=== PATIENT | male | born 1975 | race Caucasian/White ===

== ENCOUNTER 2018-01-17 16:47 | Emergency (ER) | payer OTHER ==
[2018-01-17 17:58] LABS: PLATELET COUNT 271 10^3/uL (150-400)
[2018-01-17] MEDS ORDERED: TDAP ADULT 0.5 ML INJ (BOOSTRIX) IM ONE (19:41)
--- NOTE | 2018-01-17 19:46 | EDPHY ---
H & P Time Seen by Provider: 01/17/18 17:08 HPI/ROS: CHIEF COMPLAINT: Cutaneous abscess HISTORY OF PRESENT ILLNESS: 42-year-old male presents to the emergency department with concerns about possible MRSA. The patient was in [facility] 2 weeks ago and developed a rash. Approximately 3 or 4 days ago he noted swelling and increasing pain especially to the lesions on his anterior thighs. He does not have a history of skin infections. No history of cellulitis. He does not abuse IV drugs. He saw his primary care provider who called the infectious disease provider director of first impressions who recommended that he come to the emergency department for evaluation. He has has not noticed any fevers. He is unsure of his last tetanus shot. He denies pain in his groin. Denies abdominal pain. Denies chest pain or difficulty breathing. No back pain. No urinary symptoms. REVIEW OF SYSTEMS: Constitutional: No fever, no chills. Eyes: No double or blurry vision. ENT: No sore throat. Respiratory: No cough, no shortness of breath. Cardiac: No chest pain. Gastrointestinal: No abdominal pain, vomiting or diarrhea. Genitourinary: No dysuria. Musculoskeletal: No neck or back pain. Skin: Skin infection bilateral thighs. No rashes. Neurological: No headache. Past Medical/Surgical History: Negative Social History: Smoking Status: Never smoked Physical Exam: General Appearance: Alert, no distress. Afebrile. Nontoxic appearing. Eyes: Pupils equal and round. Extraocular motions are all intact. ENT: Mouth: Mucous membranes moist. Respiratory: No wheezing, rhonchi, or rales, lungs are clear to auscultation. Cardiovascular: Regular rate and rhythm. Gastrointestinal: Abdomen is soft and nontender, no masses, no rebound or guarding, bowel sounds normal. Neurological: Alert and oriented x 3, cranial nerves II through XII grossly intact Skin: No inguinal lymphadenopathy. Right anterior proximal thigh reveals cutaneous abscess which is draining. Minimal induration. No surrounding redness. Nontender to palpate. Purulent drainage expressed. The left anterior proximal thigh reveals cutaneous abscess with large amount of induration and surrounding redness and cellulitis. He has full range of motion of his lower extremities. No lymphangitis. Musculoskeletal: Nontender to palpate along the cervical, thoracic or lumbar spine. Neck is supple. Extremities: Full range of motion and no peripheral edema. Psychiatric: Patient is oriented X 3, there is no agitation. Constitutional: Initial Vital Signs Temperature (C) 36.9 C 01/17/18 16:51 Heart Rate 85 01/17/18 16:51 Respiratory Rate 16 01/17/18 16:51 Blood Pressure 145/81 H 01/17/18 16:51 O2 Sat (%) 96 01/17/18 16:51 O2 Delivery Mode Room Air Allergies/Adverse Reactions: No Known Allergies Allergy (Unverified 07/12/09 16:32) Home Medications: Medication Instructions Recorded Cephalexin [Keflex] 500 mg PO QID #28 cap 01/17/18 Sulfamethox/Tmp 800/160 mg 1 tab PO BID #14 tab 01/17/18 [Bactrim DS] Medical Decision Making Procedures: Procedure: Abscess drainage. The patient's abscess was located on the left anterior thigh. Risks, benefits, alternatives discussed with the patient and consent obtained. The abscess was incised with a #11 blade and purulent drainage was expressed. No packing applied. The patient tolerated the procedure well. The procedure was performed by myself. ED Course/Re-evaluation: 42-year-old male presents to the emergency department with cutaneous abscess to anterior aspect of both the right and left thigh. The abscess to the right thigh has already ruptured and drained. There is no induration. It is minimally tender. He states few days ago it was firm and tender and red and since rupturing it has improved and is resolving. The abscess to the left anterior thigh was incised and drained. The patient has no evidence of lymphangitis. No palpable inguinal lymphadenopathy. He is afebrile. He is nontoxic appearing. Laboratory studies including CBC and chemistries are normal. The case was discussed with Dr. Graves, secondary supervising physician, who did not directly evaluate the patient but agrees with treatment and plan. I do not think this patient needs admission to the hospital. I do not think IV antibiotics are indicated. This was discussed with the patient who verbalized understanding and agreed. His tetanus shot was updated. He was started on Keflex and Bactrim to cover for possible MRSA as well. Wound culture is pending. The patient was instructed to have close follow-up with his primary care provider. He was encouraged to use warm compresses. He was also encouraged to return to the emergency department sooner if he developed any other change in symptoms or felt worse. Differential Diagnosis: Including but not limited to cellulitis, MRSA, cutaneous abscess, sepsis - Data Points Laboratory Results: Laboratory Results 01/17/18 17:45 18 17:45 18 18 17:45 17:45 WBC 8.56 10^3/uL 10^3/uL (3.80-9.50) RBC 4.69 10^6/uL 10^6/uL (4.40-6.38) Hgb 14.5 g/dL g/dL (13.7-17.5) Hct 42.0 % % (40.0-51.0) MCV 89.6 fL fL (81.5-99.8) MCH 30.9 pg pg (27.9-34.1) MCHC 34.5 g/dL g/dL (32.4-36.7) RDW 12.8 % % (11.5-15.2) Plt Count 271 10^3/uL 10^3/uL (150-400) MPV 8.2 fL L fL (8.7-11.7) Neut % (Auto) 59.1 % % (39.3-74.2) Lymph % (Auto) 21.1 % % (15.0-45.0) [place] % (Auto) 9.8 % % (4.5-13.0) Eos % (Auto) 8.3 % H % (0.6-7.6) Baso % (Auto) 1.2 % % (0.3-1.7) Nucleat RBC Rel Count 0.0 % % (0.0-0.2) Absolute Neuts (auto) 5.06 10^3/uL 10^3/uL (1.70-6.50) Absolute Lymphs (auto) 1.81 10^3/uL 10^3/uL (1.00-3.00) Absolute Monos (auto) 0.84 10^3/uL H 10^3/uL (0.30-0.80) Absolute Eos (auto) 0.71 10^3/uL H 10^3/uL (0.03-0.40) Absolute Basos (auto) 0.10 10^3/uL 10^3/uL (0.02-0.10) Absolute Nucleated RBC 0.00 10^3/uL 10^3/uL (0-0.01) Immature Gran % 0.5 % % (0.0-1.1) Immature Gran # 0.04 10^3/uL 10^3/uL (0.00-0.10) Sodium 139 mEq/L mEq/L (135-145) Potassium 4.3 mEq/L mEq/L (3.5-5.2) Chloride 105 mEq/L mEq/L (97-110) Carbon Dioxide 24 mEq/l mEq/l (22-31) Anion Gap 10 mEq/L mEq/L (8-16) BUN 17 mg/dL mg/dL (7-23) Creatinine 1.0 mg/dL mg/dL (0.7-1.3) Estimated GFR > 60 Glucose 89 mg/dL mg/dL (70-100) Calcium 9.2 mg/dL mg/dL (8.5-10.4) Microbiology Results: MICROBIOLOGY 01/17/18 17:15 Thigh - Swab Gram Stain - Final Medications Given: Discontinued Medications Cephalexin (Keflex 500 Mg Prepack#4) 1 btl TAKEHOME EDNOW ONE PRN Reason: Protocol Stop: 01/17/18 19:48 Last Admin: 01/17/18 20:03 Dose: 1 btl Diphtheria/Tetanus/Acell Pertussis (Boostrix) 0.5 ml IM .ONCE ONE Stop: 01/17/18 19:42 Last Admin: 01/17/18 20:03 Dose: 0.5 ml Trimethoprim/Sulfamethoxazole (Bactrim Ds Prepack#2) 1 btl TAKEHOME EDNOW ONE Stop: 01/17/18 19:48 Last Admin: 01/17/18 20:02 Dose: 1 btl Departure - Departure Disposition: Home, Routine, Self-Care Clinical Impression: Abscess of right thigh, Abscess of left thigh, Cellulitis of left thigh Condition: Good Instructions: Cellulitis (ED), Abscess (ED) Additional Instructions: Keflex and Bactrim as directed for 1 week. Call [phone] for the results of your wound culture in 48 hr. Return to the emergency department if he develop fever, or increasing pain, swelling in her groin, or if you feel worse in any way. You were given a tetanus shot today in the emergency department. Please document this for your records. Referrals: HOANG RODRIGUEZ [Primary Care Provider] - 1-2 days without fail Prescriptions: Cephalexin [Keflex] 500 mg PO QID #28 cap Sulfamethox/Tmp 800/160 mg [Bactrim DS] 1 tab PO BID #14 tab
[2018-01-17] MEDS ORDERED: SULFAMET/TMP DS PREPACK#2 BTL TAKEHOME ONE (19:47)
[2018-01-17] MEDS ORDERED: CEPHALEXIN 500MG PREPACK#4 BTL TAKEHOME ONE (19:47)
[2018-01-17 20:23] VITALS: BP 141/85
== END 2018-01-17 20:23 | disposition home or self-care (01) ==
DX: L02.416 Cutaneous abscess of left lower limb (principal); L02.415 Cutaneous abscess of right lower limb; L03.116 Cellulitis of left lower limb; Z23 Encounter for immunization